=== PATIENT | male | born 1950 | race Caucasian/White ===

== ENCOUNTER 2017-02-08 10:22 | Outpatient (CLI) | payer BC ==
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
== END 2017-02-08 10:23 | disposition home or self-care (01) ==
LOC: TBSIIMAG 10:22
PROVIDERS: ATTEND Surgery
DX: S12.690A Other displaced fracture of seventh cervical vertebra, initial encounter for closed fracture (principal)
CPT/HCPCS: 72040

== ENCOUNTER 2017-03-06 10:24 | Outpatient (CLI) | payer BC ==
--- NOTE | 2017-03-06 13:33 | RAD ---
EXAM: CERVICAL SPINE 4 VIEWS: HISTORY: Neck pain. C-spine fracture. Followup exam. COMPARISON: 01/29/17. FINDINGS: Cervical collar is redemonstrated. Predental space is normal. The visualized cervical spine does n ot demonstrate any fracture. There is stable anterolisthesis of C5 upon C6. There appears to be an terolisthesis of C6 upon C7. The cervicothoracic junction is limited in evaluation. IMPRESSION: Cervical spine fracture is difficult to appreciate. There is spondylolisthesis as detailed above. POS: JOSE
== END 2017-03-06 10:25 | disposition home or self-care (01) ==
LOC: TBSIIMAG 10:24
PROVIDERS: ATTEND Surgery
DX: S12.9XXA Fracture of neck, unspecified, initial encounter (principal); M54.2 Cervicalgia; M43.12 Spondylolisthesis, cervical region
CPT/HCPCS: 72040

== ENCOUNTER 2017-04-12 10:40 | Outpatient (CLI) | payer BC ==
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
== END 2017-04-12 10:41 | disposition home or self-care (01) ==
LOC: TBSIIMAG 10:40
PROVIDERS: ATTEND Surgery
DX: S12.9XXD Fracture of neck, unspecified, subsequent encounter (principal); M47.892 Other spondylosis, cervical region
CPT/HCPCS: 72040

== ENCOUNTER 2017-09-15 16:50 | Emergency (ER) | payer BC ==
[2017-09-15 17:30] LABS: #Eosinphils 0.3 thou/uL (0.0-0.7); #Lymphocytes 1.9 thou/uL (1.20-3.40); #Monocytes 0.8 thou/uL (0.11-0.59); #Neutrophils 6.9 thou/uL (1.40-6.50); %Basophils 0.4 % (0.0-1.0); %Eosinophils 3.1 % (0.0-10.0); %Lymphocytes 19.3 % (21.0-51.0); %Neutrophils 69.2 % (42.0-75.0); Hemoglobin 13.2 g/dL (14.0-18.0); Mean Corpuscular HGB CONC 35.7 g/dL (32.0-36.0); Mean Corpuscular Hemoglobin 32.1 pg (27.0-31.0); Mean Platelet Volume 8.3 fL (7.4-10.4); Platelet Count 195 thou/uL (130-400); RBC Distribution Width 11.1 % (11.5-14.5)
[2017-09-15 17:41] LABS: Anion Gap 12 mmol/L (10-20); BUN (Urea Nitrogen) 17 mg/dL (8.4-25.7); Calc. Creatinine Clearance 0 mL/min (70-130); Calcium 9.1 mg/dL (7.8-10.44); Carbon Dioxide 26 mmol/L (23-31); Chloride 105 mmol/L (98-107); Estimated GFR-MDRD Greater than 90; Glucose 136 mg/dL (80-115); Potassium 4.2 mmol/L (3.5-5.1); Sodium 139 mmol/L (136-145)
--- NOTE | 2017-09-15 18:33 | RAD ---
FRONTAL VIEW CHEST: INDICATIONS: Cough. FINDINGS: There is no evidence of consolidation, effusion, or discrete pneumothorax. the cardiac silhouette is normal in size. There is osseous degenerative change. IMPRESSION: No focal consolidation. POS: [facility]
== END 2017-09-15 18:10 | disposition home or self-care (01) ==
LOC: SCSER 16:50
DX: J06.9 Acute upper respiratory infection, unspecified (principal); E78.5 Hyperlipidemia, unspecified; E11.9 Type 2 diabetes mellitus without complications; Z86.73 Personal history of transient ischemic attack (TIA), and cerebral infarction without residual deficits; Z79.4 Long term (current) use of insulin; Z79.82 Long term (current) use of aspirin; Z79.899 Other long term (current) drug therapy
CPT/HCPCS: 36416; 71045; 80048; 85025; 36415-59